=== PATIENT | male | born 1960 | race Caucasian/White ===

== ENCOUNTER 2019-05-01 07:33 | Inpatient (IN) | payer OTHER ==
[~2019-05-01] VITALS: Ht 175.3 cm; Wt 79.4 kg
[2019-05-01] MEDS ORDERED: IPRATROPIUM/ALBUTEROL SULFATE 3 ML AMPUL.NEB (DUONEB) INH ONE (08:00)
[2019-05-01 08:03] LABS: BASOPHILS # (AUTO) 0.1 K/uL (0.0-0.2); EOSINOPHILS # (AUTO) 0.1 K/uL (0.0-0.4); EOSINOPHILS % (AUTO) 1.5 % (0.0-4.0); HEMATOCRIT 43.7 % (36-54); HEMOGLOBIN 14.9 g/dL (14.0-18.0); LYMPHOCYTES # (AUTO) 1.2 K/uL (1.0-5.5); LYMPHOCYTES % (AUTO) 14.7 % (20.5-51.5); MEAN CORPUSCULAR HEMOGLOBIN 29 pg (27-31); MEAN CORPUSCULAR HGB CONC 34 % (32-36); MEAN CORPUSCULAR VOLUME 86 fL (79.0-98.0); MONOCYTES # (AUTO) 0.7 K/uL (0.0-1.0); MONOCYTES % (AUTO) 8.6 % (1.7-9.3); NEUTROPHILS % (AUTO) 74.2 % (40.0-70.0); PLATELET COUNT (AUTO) 223 K/uL (130-430); RED BLOOD CELL COUNT(AUTO) 5.09 MIL/uL (4.2-6.2); RED CELL DISTRIBUTION WIDTH 14.8 % (9.0-15.0)
[2019-05-01] MEDS ORDERED: FUROSEMIDE 40 MG/4 ML VIAL IVP ONE (08:30)
[2019-05-01 08:32] LABS: ALBUMIN 3.4 g/dL (3.4-4.8); CALCIUM 8.8 mg/dL (8.4-11.0); CREATININE 1.5 mg/dL (0.55-1.30); POTASSIUM 4.2 mmol/L (3.5-5.1); TOTAL BILIRUBIN 0.8 mg/dL (0.0-1.0)
[2019-05-01 10:26] VITALS: BP_SYST 160
[2019-05-01] MEDS ORDERED: BECL8.7H (10:51)
[2019-05-01 19:00] VITALS: BP_SYST 153
[2019-05-01 20:00] VITALS: BP_SYST 153
[2019-05-01] MEDS: FUROSEMIDE 20 MG/2 ML VIAL IVP SCH (20:45)
[2019-05-01] MEDS: CARVEDILOL 6.25 MG TABLET (COREG) PO SCH (20:46)
[2019-05-01] MEDS ORDERED: ASPIRIN 81 MG TAB.CHEW PO SCH (21:00)
[2019-05-01] MEDS ORDERED: FUROSEMIDE 20 MG/2 ML VIAL IVP SCH (21:00)
[2019-05-01] MEDS ORDERED: DILTIAZEM HCL 30 MG TABLET PO SCH (21:00)
[2019-05-01] MEDS ORDERED: CARVEDILOL 6.25 MG TABLET (COREG) PO SCH (21:00)
[2019-05-01 22:46] LABS: BARBITURATE, URINE NEGATIVE (NEG <=200); BENZODIAZEPINE, URINE NEGATIVE (NEG <=150); CANNABINOID, URINE NEGATIVE (NEG <=50); COCAINE, URINE NEGATIVE (NEG <=150); METHAMPHETAMINES SCREEN,URINE POSITIVE (NEG <=500); OPIATE, URINE NEGATIVE (NEG <=100); PHENCYCLIDINE SCREEN,URINE NEGATIVE (NEG <=25); UR TRICYCLIC ANTIDEPRESSANTS NEGATIVE (NEG <=300); URINE AMPHETAMINE NEGATIVE (NEG <=500); URINE METHADONE NEGATIVE (NEG <=200); URINE OXYCODONE SCREEN NEGATIVE (NEG <=100); URINE PROPOXYPHENE SCREEN NEGATIVE (NEG <=300)
[2019-05-02 00:50] VITALS: BP_SYST 152
[2019-05-02] MEDS ORDERED: ACETAMINOPHEN 325 MG TABLET PO PRN (01:00)
[2019-05-02] MEDS ORDERED: TEMAZEPAM 15 MG CAPSULE PO PRN (01:00)
[2019-05-02 06:13] LABS: CALCIUM 8.9 mg/dL (8.4-11.0); CREATININE 1.45 mg/dL (0.55-1.30); POTASSIUM 3.3 mmol/L (3.5-5.1)
[2019-05-02 08:00] VITALS: BP_SYST 123
[2019-05-02] MEDS ORDERED: ENOXAPARIN SODIUM 30 MG/0.3 ML SYRINGE SUBCUT SCH (09:00)
[2019-05-02] MEDS: FUROSEMIDE 20 MG/2 ML VIAL IVP SCH ×2 (09:16→20:32)
[2019-05-02] MEDS: CARVEDILOL 6.25 MG TABLET (COREG) PO SCH ×2 (09:17→20:31)
[2019-05-02] MEDS ORDERED: FUROSEMIDE 20 MG/2 ML VIAL ONE (09:32)
[2019-05-02 12:20] VITALS: BP_SYST 109
[2019-05-02] MEDS ORDERED: NICOTINE 21 MG/24 HR PATCH.TD24 TD ONE (16:15)
[2019-05-02] MEDS ORDERED: POTASSIUM CHLORIDE 10 MEQ TAB.PRT.SR PO ONE (16:30)
[2019-05-02 16:43] VITALS: BP_SYST 121
[2019-05-02 20:00] VITALS: BP_SYST 144
[2019-05-03 00:44] VITALS: BP_SYST 139
[2019-05-03 07:10] LABS: CALCIUM 9.4 mg/dL (8.4-11.0); CREATININE 1.53 mg/dL (0.55-1.30); POTASSIUM 3.4 mmol/L (3.5-5.1)
[2019-05-03] MEDS ORDERED: NICOTINE 21 MG/24 HR PATCH.TD24 TD SCH (09:00)
== END 2019-05-03 08:10 | disposition left against medical advice (07) | DRG 291 ==
LOC: SED 07:33 → STU 09:42 → SMU 10:00 → STU 10:05
PROVIDERS: ADMIT Family Medicine; ATTEND Family Medicine
DX: I13.0 Hypertensive heart and chronic kidney disease with heart failure and stage 1 through stage 4 chronic kidney disease, or unspecified chronic kidney disease (principal); I50.23 Acute on chronic systolic (congestive) heart failure; N17.9 Acute kidney failure, unspecified; F15.90 Other stimulant use, unspecified, uncomplicated; F17.210 Nicotine dependence, cigarettes, uncomplicated; I42.0 Dilated cardiomyopathy; J44.9 Chronic obstructive pulmonary disease, unspecified; N18.9 Chronic kidney disease, unspecified; Z79.899 Other long term (current) drug therapy
CPT/HCPCS: 36415; 71045; 80048; 80053; 80307; 83880; 84484; 85025; 93005; 93306; 94640; 96374; 99285; G0378; J1650; J1940; J7620

== ENCOUNTER 2019-05-04 08:35 | Emergency (ER) | payer OTHER ==
[~2019-05-04] VITALS: Ht 175.3 cm; Wt 80.7 kg
[~2019-05-04 08:35] MED LIST: BECL8.7H
[2019-05-04 08:45] VITALS: BP_SYST 137
[2019-05-04 09:12] LABS: BASOPHILS # (AUTO) 0.1 K/uL (0.0-0.2); EOSINOPHILS # (AUTO) 0.5 K/uL (0.0-0.4); EOSINOPHILS % (AUTO) 6.9 % (0.0-4.0); HEMATOCRIT 49.1 % (36-54); HEMOGLOBIN 16.5 g/dL (14.0-18.0); LYMPHOCYTES # (AUTO) 1.2 K/uL (1.0-5.5); LYMPHOCYTES % (AUTO) 17.2 % (20.5-51.5); MEAN CORPUSCULAR HEMOGLOBIN 29 pg (27-31); MEAN CORPUSCULAR HGB CONC 34 % (32-36); MEAN CORPUSCULAR VOLUME 86 fL (79.0-98.0); MONOCYTES # (AUTO) 0.9 K/uL (0.0-1.0); MONOCYTES % (AUTO) 12.2 % (1.7-9.3); NEUTROPHILS # (AUTO) 4.3 K/uL (1.8-7.7); NEUTROPHILS % (AUTO) 61.7 % (40.0-70.0); PLATELET COUNT (AUTO) 249 K/uL (130-430); RED BLOOD CELL COUNT(AUTO) 5.69 MIL/uL (4.2-6.2); RED CELL DISTRIBUTION WIDTH 14.5 % (9.0-15.0); WHITE BLOOD COUNT (AUTO) 6.9 K/uL (4.8-10.8)
--- NOTE | 2019-05-04 09:12 | NUR ---
Placed in room 4. Placed on cardiac catheterization technologist, blood pressure machine and pulse oximeter. To gown for exam. Side rails up. Report given to Miles OWENS.
[2019-05-04 09:24] LABS: CALCIUM 8.5 mg/dL (8.4-11.0); CREATININE 1.81 mg/dL (0.55-1.30); POTASSIUM 4.4 mmol/L (3.5-5.1)
--- NOTE | 2019-05-04 09:27 | NUR ---
Patient is awake, alert, and oriented x4. Patient reports chest pain and SOB since this morning. Patient left AMA yesterday and came back in at the request of his father.
[2019-05-04 09:29] LABS: PROTHROMBIN TIME 10.5 SECS (9.5-12.5)
[2019-05-04 09:33] LABS: ALBUMIN 3.3 g/dL (3.4-4.8); TOTAL BILIRUBIN 0.5 mg/dL (0.0-1.0)
--- NOTE | 2019-05-04 10:00 | NUR ---
Kassidy lakeandi in ED - 05/04/19 at 1000 by CRESENCIO Patient is calling her friend for a ride home.
--- NOTE | 2019-05-04 10:15 | NUR ---
ER Dr. Hairston at bedside examining patient.
[2019-05-04 10:43] VITALS: BP_SYST 137
--- NOTE | 2019-05-04 10:43 | NUR ---
Patient given written and verbal discharge instructions and verbalizes understanding. ER MD discussed with patient the results and treatment provided. Patient in stable condition. ID arm band removed. Rx of albuterol, atrovent given. Patient educated on pain management and to follow up with PMD. Pain Scale 0/10. Opportunity for questions provided and answered. Medication side effect fact sheet provided.
== END 2019-05-04 10:43 | disposition home or self-care (01) ==
LOC: SED 08:35
DX: J44.1 Chronic obstructive pulmonary disease with (acute) exacerbation (principal)
CPT/HCPCS: 36415; 71045; 80053; 83880; 84484; 85025; 85610-TC; 85730-TC; 99284

== ENCOUNTER 2019-05-23 12:39 | Inpatient (IN) | payer OTHER ==
[~2019-05-23] VITALS: Ht 175.3 cm; Wt 86.6 kg
[2019-05-23 12:49] VITALS: BP_SYST 165
--- NOTE | 2019-05-23 12:53 | NUR ---
Placed in room 07 . Placed on groundwater monitoring technician, blood pressure machine and pulse oximeter. To gown for exam. Side rails up. Report given to Kaley OWENS.
--- NOTE | 2019-05-23 12:55 | NUR ---
Pt AAOx4 presents to ED via wheelchair c/o shortness of breath x 3 weeks with acute exacerbation today. Denies taking medication prior to arrival. Skin pink dry and warm, breathing labored and tachypneic. Denies n/v/d. No other injuries/complaints per pt/noted.
--- NOTE | 2019-05-23 12:58 | NUR ---
LILIANA Smith at bedside examining patient.
--- NOTE | 2019-05-23 13:13 | NUR ---
LILIANA Da Silva at bedside examining patient.
[2019-05-23] MEDS ORDERED: IPRATROPIUM/ALBUTEROL SULFATE 3 ML AMPUL.NEB (DUONEB) INH ONE (13:15)
[2019-05-23] MEDS ORDERED: FUROSEMIDE 40 MG/4 ML VIAL IVP ONE (13:15)
--- NOTE | 2019-05-23 13:15 | NUR ---
# 20 gauge angiocath placed to RIGHT FOREARM. Use of aseptic technique. Opsite placed over site. Blood return noted. No evidence of infiltration noted. Patient tolerated well.
--- NOTE | 2019-05-23 13:19 | NUR ---
chest xary done at bedside.
[2019-05-23 13:51] LABS: BASOPHILS # (AUTO) 0.1 K/uL (0.0-0.2); BASOPHILS % (AUTO) 2.1 % (0.0-2.0); EOSINOPHILS # (AUTO) 0.3 K/uL (0.0-0.4); HEMATOCRIT 46.3 % (36-54); HEMOGLOBIN 15.3 g/dL (14.0-18.0); LYMPHOCYTES # (AUTO) 1.7 K/uL (1.0-5.5); MEAN CORPUSCULAR HEMOGLOBIN 29 pg (27-31); MEAN CORPUSCULAR HGB CONC 33 % (32-36); MEAN CORPUSCULAR VOLUME 88 fL (79.0-98.0); MONOCYTES # (AUTO) 0.7 K/uL (0.0-1.0); MONOCYTES % (AUTO) 10.9 % (1.7-9.3); NEUTROPHILS # (AUTO) 3.7 K/uL (1.8-7.7); PLATELET COUNT (AUTO) 226 K/uL (130-430); RED BLOOD CELL COUNT(AUTO) 5.25 MIL/uL (4.2-6.2); RED CELL DISTRIBUTION WIDTH 15.5 % (9.0-15.0); WHITE BLOOD COUNT (AUTO) 6.5 K/uL (4.8-10.8)
[2019-05-23 14:10] LABS: ANION GAP 11 (5-15); CALCIUM 8.5 mg/dL (8.4-11.0); CHLORIDE 103 mmol/L (98-107); CREATININE 1.89 mg/dL (0.55-1.30); GLUCOSE 104 mg/dL (70-99); SODIUM SERUM 140 mmol/L (136-145); UREA NITROGEN, BLOOD 26 mg/dL (8-21)
[2019-05-23 14:11] LABS: INR 1.1 (0.80-1.20); PROTHROMBIN TIME 11.5 SECS (9.5-12.5)
[2019-05-23 14:13] LABS: GFR AFRICAN AMERICAN 48 mL/min (>90)
[2019-05-23 14:15] LABS: ALANINE AMINOTRANSFERASE 104 U/L (12-78); ALBUMIN 3.2 g/dL (3.4-4.8); ASPARTATE AMINOTRANSFERASE 58 U/L (10-37); TOTAL BILIRUBIN 1.3 mg/dL (0.0-1.0)
[2019-05-23 14:16] LABS: ALCOHOL, BLOOD < 3 mg/dL (<10)
--- NOTE | 2019-05-23 14:28 | NUR ---
Pt unable to recall current list of medication. Pt states he fills medication at [facility]. , Pharmacy reports that no current med list available and only one medication was filled and completed in October 2017. Unable to complete med rec list at this time.
[2019-05-23] MEDS ORDERED: hydrALAZINE HCL 20 MG/ML VIAL IVP ONE (14:30)
[2019-05-23 14:35] LABS: BILIRUBIN,URINE NEGATIVE (NEGATIVE); BLOOD, URINE 2+ (NEGATIVE); CLARITY/URINE CLEAR (CLEAR); COLOR,URINE YELLOW (YELLOW); GLUCOSE,URINE NEGATIVE (NEGATIVE); KETONES,URINE NEGATIVE (NEGATIVE); LEUKOCYTE ESTERASE ,URINE NEGATIVE (NEGATIVE); NITRITE, URINE NEGATIVE (NEGATIVE); PROTEIN URINE 2+ (NEGATIVE); UROBILINOGEN,URINE 0.2 (0.2-1.0)
[2019-05-23 14:45] LABS: BACTERIA,URINE FEW /HPF (None Seen); MUCUS,URINE None Seen /LPF (None Seen); WBC,URINE 0-3 /HPF (0-3)
[2019-05-23 14:47] LABS: BARBITURATE, URINE NEGATIVE (NEG <=200); BENZODIAZEPINE, URINE NEGATIVE (NEG <=150); CANNABINOID, URINE NEGATIVE (NEG <=50); COCAINE, URINE NEGATIVE (NEG <=150); METHAMPHETAMINES SCREEN,URINE POSITIVE (NEG <=500); OPIATE, URINE NEGATIVE (NEG <=100); PHENCYCLIDINE SCREEN,URINE NEGATIVE (NEG <=25); UR TRICYCLIC ANTIDEPRESSANTS NEGATIVE (NEG <=300); URINE AMPHETAMINE POSITIVE (NEG <=500); URINE METHADONE NEGATIVE (NEG <=200); URINE OXYCODONE SCREEN NEGATIVE (NEG <=100); URINE PROPOXYPHENE SCREEN NEGATIVE (NEG <=300)
--- NOTE | 2019-05-23 14:57 | NUR ---
Patient will be admitted to care of Dr. Molina. Admitted to Telemetry unit. Summary report printed. Report will be given at bedside.
--- NOTE | 2019-05-23 15:30 | NUR ---
ADMISSION NOTE Received patient from ER via ranjit, received report from Gonzalo OWENS. Patient admitted with diagnosis of CHF Exacerbation. Patient oriented to hospital routine, call light, toileting and safety-patient verbalized understanding.
[2019-05-23 15:34] VITALS: BP_SYST 142
--- NOTE | 2019-05-23 15:36 | NUR ---
Consultation Paged Reason for consultation:CHF Exacerbation Was consult called: Yes Person who was notified: Ambar Consulting Physician: Dr. Solo Buy Boat Operator Specialty: Cardio. Buy Boat Operator Ordered By: Dr. Avelino Molina
--- NOTE | 2019-05-23 15:41 | NUR ---
Cardio calls: Dr. Solo has called and asked about patient's condition, states he will see the patient this afternoon.
[2019-05-23] MEDS ORDERED: FLU VACC QS2019-20 36MOS UP/PF 60 MCG/0.5 ML SYRINGE I.M. PRN (16:00)
--- NOTE | 2019-05-23 16:49 | NUR ---
ROUNDS Pt sitting up in bed with no c/o pain or discomfort. Pt with no s/s resp distress, noted shallow breathing at times. pt given [place] sandwich and ice water per request. Second urinal placed at bedside due to pt given Lasix in ER. Needs met, call light within reach.
--- NOTE | 2019-05-23 17:14 | NUR ---
CONSULTATION PAGED REASON FOR CONSULTATION:YFN WAS CONSULT CALLED?Y PERSON WHO WAS NOTIFIED:JESÚS CONSULTING PHYSICIAN:ARLIN MOODY IMPORT CLERK SPECIALTY:NEPHRO IMPORT CLERK PHONE NUMBER:[phone] REQUESTING PHYSICIAN:FRANCK VELIZ
[2019-05-23] MEDS ORDERED: HYDROcodone/ACETAMIN 5-325 MG TAB (NORCO/ VICODIN) PO PRN (17:15)
[2019-05-23] MEDS ORDERED: LORazepam 2 MG/ML VIAL IVP PRN (17:15)
[2019-05-23] MEDS ORDERED: ACETAMINOPHEN 325 MG TABLET PO PRN (17:15)
[2019-05-23] MEDS ORDERED: ONDANSETRON HCL 4 MG/2 ML VIAL IVP PRN (17:15)
[2019-05-23] MEDS: LISINOPRIL 5 MG TABLET PO SCH (17:45)
[2019-05-23] MEDS ORDERED: CARVEDILOL 6.25 MG TABLET (COREG) ONE (18:14)
[2019-05-23] MEDS: CARVEDILOL 6.25 MG TABLET (COREG) PO SCH ×2 (18:16→20:29)
--- NOTE | 2019-05-23 18:55 | NUR ---
CLOSING NOTE/MD Pt resting quietly in bed with no s/s resp distress, no c/o pain or discomfort. Pt c/o feeling cold-pt given warm blanket. Pt seen by Dr. Solo earlier, orders noted and carried out. Needs met, call light within reach.
[2019-05-23 20:00] VITALS: BP_SYST 124
--- NOTE | 2019-05-23 20:00 | NUR ---
INITIAL NOTES HANDOFF REPORT RECEIVED FROM OFFGOING NURSE AT THE BEDSIDE. PATIENT IS AAOX4, RESTING COMFORTABLY IN BED. NO SOB, NO ACUTE DISTRESS, NO COMPLAINTS OF PAIN. CURRENTLY ON 2L NC AND TOLERATING WELL. BED IS LOCKED, IN THE LOWEST POSITION, 2X SIDE RAILS UP. PATIENT REFUSES BED ALARM AT THIS TIME, STATES HE IS ABLE TO AMBULATE INDEPENDENTLY WITHOUT ASSISTANCE TO THE RESTROOM AND BACK TO BED WITH STEADY GAIT. CALL LIGHT IS WITHIN REACH. ENCOURAGED PATIENT TO CALL FOR ASSISTANCE. WILL CONTINUE WITH PLAN OF CARE.
[2019-05-23] MEDS: NORMAL SALINE 5 ML DISP.SYRIN IVF SCH (20:29)
--- NOTE | 2019-05-23 22:00 | NUR ---
PATIENT ASSISTED TO GET OUT OF BED. PATIENT WAS TANGLED IN NASAL CANNULA TUBING. AMBULATED TO THE RESTROOM WITHOUT ASSISTANCE WITH STEADY GAIT. NOW BACK IN BED, RESTING COMFORTABLY. CALL LIGHT WITHIN REACH. ENCOURAGED PATIENT TO CALL FOR ASSISTANCE.
--- NOTE | 2019-05-23 23:46 | NUR ---
PATIENT RESTING COMFORTABLY IN BED, EYES CLOSED. BREATHING EVEN AND UNLABORED WITH VISIBLE CHEST RISE AND FALL NOTED. NO SOB, NO ACUTE DISTRESS, NO SIGNS OF PAIN OR FACIAL GRIMACING NOTED. CURRENTLY ON 2LNC AND TOLERATING WELL.
--- NOTE | 2019-05-24 01:49 | NUR ---
PATIENT RESTING COMFORTABLY IN BED. AAOX4. NO SOB, NO ACUTE DISTRESS, NO COMPLAINTS OF PAIN AT THIS TIME. JELL-O PROVIDED PER PATIENT REQUEST. CALL LIGHT WITHIN REACH. ENCOURAGED PATIENT TO CALL FOR ASSISTANCE.
[2019-05-24 02:28] VITALS: BP_SYST 130
--- NOTE | 2019-05-24 04:00 | NUR ---
PATIENT RESTING COMFORTABLY IN BED. EYES CLOSED. BREATHING EVEN AND UNLABORED. VISIBLE CHEST RISE AND FALL NOTED. NO SOB, NO ACUTE DISTRESS, NO SIGNS OF PAIN OR FACIAL GRIMACING NOTED. BED IS LOCKED, IN THE LOWEST POSITION, 2X SIDE RAILS UP. CALL LIGHT WITHIN REACH.
[2019-05-24] MEDS: NORMAL SALINE 5 ML DISP.SYRIN IVF SCH ×3 (05:16→21:17)
--- NOTE | 2019-05-24 05:16 | NUR ---
PATIENT AAOX4, RESTING COMFORTABLY IN BED. NO SOB, NO ACUTE DISTRESS, NO COMPLAINTS OF PAIN. PATIENT REMOVED NASAL CANNULA, STATED THAT THE OXYGEN IRRITATES HIS NOSE. TOLERATING ROOM AIR WITH 97% SATURATION. PATIENT STATED THAT HE HAS A LOT OF PHLEGM IN THE MORNING AND WOULD LIKE SOME TEA. PROVIDED PATIENT WITH HOT TEA PER PATIENT REQUEST. CALL LIGHT WITHIN REACH. ENCOURAGED PATIENT TO CALL FOR ASSISTANCE.
--- NOTE | 2019-05-24 06:23 | NUR ---
CLOSING NOTES PATIENT PROVIDED WITH ANOTHER CUP OF TEA PER PATIENT REQUEST. AAOX4, RESTING COMFORTABLY IN BED. NO SOB, NO ACUTE DISTRESS, NO COMPLAINTS OF PAIN. IV SITE INTACT, DRESSING CLEAN AND DRY, SALINE LOCKED. BED IS LOCKED, IN THE LOWEST POSITION, 2X SIDE RAILS UP. CALL LIGHT IS WITHIN REACH. ENCOURAGED PATIENT TO CALL FOR ASSISTANCE. FALL AND SAFETY PRECAUTIONS MAINTAINED. ALL NEEDS HAVE BEEN MET DURING THIS SHIFT. WILL ENDORSE CARE TO ONCOMING DAYSHIFT NURSE.
[2019-05-24 06:44] LABS: BASOPHILS # (AUTO) 0.1 K/uL (0.0-0.2); EOSINOPHILS # (AUTO) 0.4 K/uL (0.0-0.4); EOSINOPHILS % (AUTO) 5.2 % (0.0-4.0); HEMATOCRIT 44.3 % (36-54); HEMOGLOBIN 14.9 g/dL (14.0-18.0); LYMPHOCYTES # (AUTO) 1.6 K/uL (1.0-5.5); LYMPHOCYTES % (AUTO) 22.4 % (20.5-51.5); MEAN CORPUSCULAR HEMOGLOBIN 29 pg (27-31); MEAN CORPUSCULAR HGB CONC 34 % (32-36); MEAN CORPUSCULAR VOLUME 87 fL (79.0-98.0); MONOCYTES # (AUTO) 0.7 K/uL (0.0-1.0); MONOCYTES % (AUTO) 9.7 % (1.7-9.3); NEUTROPHILS # (AUTO) 4.3 K/uL (1.8-7.7); NEUTROPHILS % (AUTO) 61.7 % (40.0-70.0); PLATELET COUNT (AUTO) 211 K/uL (130-430); RED BLOOD CELL COUNT(AUTO) 5.08 MIL/uL (4.2-6.2); RED CELL DISTRIBUTION WIDTH 15.5 % (9.0-15.0)
[2019-05-24 07:33] LABS: ALBUMIN 2.9 g/dL (3.4-4.8); CALCIUM 8.3 mg/dL (8.4-11.0); CREATININE 1.63 mg/dL (0.55-1.30); TOTAL BILIRUBIN 1.2 mg/dL (0.0-1.0)
[2019-05-24 07:50] VITALS: BP_SYST 149
--- NOTE | 2019-05-24 07:50 | NUR ---
INITIAL ROUNDS Received pt AAOx4, no s/s resp distress-pt c/o his nares being dry-humidifier placed. C/o low abd pain 05/28-will check on pain medication. Plan of care for the day reviewed with pt-pt verbalized his understanding. Pain management, CHF disease process, skin and safety discussed-teach back done. Call light within reach.
[2019-05-24] MEDS: LISINOPRIL 5 MG TABLET PO SCH (08:27)
[2019-05-24] MEDS: BECLOMETHASONE DIPROPIONATE SCH (08:28)
[2019-05-24] MEDS: FUROSEMIDE 40 MG/4 ML VIAL IVP SCH (08:28)
[2019-05-24] MEDS: CARVEDILOL 6.25 MG TABLET (COREG) PO SCH ×2 (08:28→21:17)
[2019-05-24] MEDS: HYDROcodone/ACETAMIN 10-325 MG TAB PO PRN ×2 (08:29→23:50)
--- NOTE | 2019-05-24 11:27 | NUR ---
CONSULTATION PAGED REASON FOR CONSULTATION: Transaminitis WAS CONSULT CALLED?Yes PERSON WHO WAS NOTIFIED: Melissa CONSULTING PHYSICIAN: Dr. Chatterjee (Dr. [place] director of land acquisition) SOW FARM TECHNICIAN SPECIALTY: GI SOW FARM TECHNICIAN PHONE NUMBER: [phone] REQUESTING PHYSICIAN: Avelino Corley
--- NOTE | 2019-05-24 11:28 | NUR ---
CONSULTATION PAGED REASON FOR CONSULTATION:TRANSAMINITIS WAS CONSULT CALLED?Y PERSON WHO WAS NOTIFIED:JESÚS CONSULTING PHYSICIAN:ROB MEDEL (ANNABEL CASTILLO ONLINE EDITOR) [facility] SPECIALTY:GI [facility] PHONE NUMBER:[phone] ORDERING PHYSICIAN:FRANCK VELIZ
[2019-05-24 11:37] VITALS: BP_SYST 102
--- NOTE | 2019-05-24 12:02 | NUR ---
Director Of Learning Note Patient referred to Director Of Learning by nursing due to substance abuse. Also conducted Discharge Plan Assessment. SENIOR STOCK PLAN ADMINISTRATOR met with patient at bedside. He stated he knew he needed to stop using meth and alcohol or he will . He has recently stopped smoking. SENIOR STOCK PLAN ADMINISTRATOR provided a list of substance abuse resources and discussed. Left note for Cat PAYNE to determine what substance abuse resources are available to patient through his insurance and obtain name of PCP. Unsure if patient will need or qualify for O2 upon discharge. SS/CM/DCP will remain available.
--- NOTE | 2019-05-24 12:12 | NUR ---
ROUNDS/MD Pt sitting up in bed eating his lunch, pt informed that the MD ordered an abd US and he will need to be NPO after lunch. No s/s resp distress, no c/o pain or discomfort. Pt seen by Dr. Molina earlier. Needs met, call light within reach.
--- NOTE | 2019-05-24 15:08 | NUR ---
ROUNDS Pt sitting up in bed visiting with his daughters, no s/s resp distress, no c/o pain or discomfort. Dr. Solo saw pt and is emphasizing to the pt how serious his condition is at this time. Call light within reach.
[2019-05-24 15:14] VITALS: BP_SYST 119
--- NOTE | 2019-05-24 18:36 | NUR ---
CLOSING NOTE Pt sitting up in bed visiting with his family. No s/s resp distress, no c/o pain. Pt does c/o itchiness to right forearm, pt given lotion. Dr. Molina called and orders placed for Benadryl tablets. Will give to pt. Pt reminded that he is to be NPO post midnight for Abd US in the morning-pt verbalized his understand. Needs met, call light within reach.
[2019-05-24] MEDS: DIPHENHYDRAMINE HCL 50 MG CAPSULE PO PRN (18:57)
--- NOTE | 2019-05-24 19:36 | NUR ---
Initial note: Received report from edilson RN. Patient is awake, laying in bed, no acute distress. Receiving 2L O2 via NC, even and unlabored respirations. IV to right forearm is saline locked. Patent and benign. Call light with patient. Safety and fall precautions in place. Will continue with plan of care.
[2019-05-24 20:55] VITALS: BP_SYST 145
--- NOTE | 2019-05-24 21:43 | NUR ---
Rounds: Patient is awake in bed watching TV. Does not show any acute distress. Tolerating 2L NC. IV site is patent and intact. Call light with patient. Will continue to monitor.
--- NOTE | 2019-05-24 23:50 | NUR ---
Pain: Patient is complaining of severe abdominal pain. [place] 10-325 indicated. Education provided regarding indications and side effects, patient verbalized understanding. Administered medication per MD order. Call light with patient. Safety and fall precautions in place. Will continue to monitor.
--- NOTE | 2019-05-25 | NUR ---
NPO: Patient is now NPO for abdominal US in the AM. Educated patient regarding NPO status, patient verbalized understanding. Bedside cleared of food and liquids. Call light is with patient. Will continue to monitor.
[2019-05-25 01:26] VITALS: BP_SYST 138
--- NOTE | 2019-05-25 02:46 | NUR ---
NPO: Patient is now NPO for abdominal US in the AM. Educated patient regarding NPO status, patient verbalized understanding. Bedside cleared of food and liquids. Call light is with patient. Will continue to monitor. Addendum: 05/25/19 at 0249 by Nino Moreno RN Correction: wrong time
--- NOTE | 2019-05-25 02:49 | NUR ---
Rounds: Patient is sleeping, no acute distress. Even, unlabored breathing on 2L NC. IV site intact. Call light with patient. Safety and fall precautions in place. Will continue monitoring.
--- NOTE | 2019-05-25 04:32 | NUR ---
Rounds: Patient is sleeping, no acute distress noted. Tolerating 2LNC. Even and unlabored respirations. IV site is patent and intact. Call light with patient. Safety, fall precautions in place. Will continue monitoring.
[2019-05-25] MEDS: NORMAL SALINE 5 ML DISP.SYRIN IVF SCH ×3 (05:50→21:16)
--- NOTE | 2019-05-25 06:04 | NUR ---
Closing note: Patient is awake in bed, no acute distress noted. IV site to right forearm patent and benign. Tolerating 2L NC. Patient was complaining of feeling anxious regarding the ultrasound and was administered Ativan 1 MG intravenously as indicated per MD order. Indications and side effects discussed, patient verbalized understanding. All needs met. Safety and fall precautions maintained. Hourly rounding performed throughout shift. Will endorse care to dayshift RN.
[2019-05-25 07:31] LABS: BASOPHILS # (AUTO) 0.1 K/uL (0.0-0.2); BASOPHILS % (AUTO) 1.1 % (0.0-2.0); EOSINOPHILS # (AUTO) 0.4 K/uL (0.0-0.4); EOSINOPHILS % (AUTO) 6.9 % (0.0-4.0); HEMATOCRIT 46.2 % (36-54); HEMOGLOBIN 15.4 g/dL (14.0-18.0); LYMPHOCYTES # (AUTO) 1.4 K/uL (1.0-5.5); LYMPHOCYTES % (AUTO) 24.8 % (20.5-51.5); MEAN CORPUSCULAR HEMOGLOBIN 29 pg (27-31); MEAN CORPUSCULAR HGB CONC 33 % (32-36); MEAN CORPUSCULAR VOLUME 88 fL (79.0-98.0); MONOCYTES # (AUTO) 0.6 K/uL (0.0-1.0); NEUTROPHILS # (AUTO) 3.2 K/uL (1.8-7.7); NEUTROPHILS % (AUTO) 56.2 % (40.0-70.0); PLATELET COUNT (AUTO) 230 K/uL (130-430); RED BLOOD CELL COUNT(AUTO) 5.25 MIL/uL (4.2-6.2); RED CELL DISTRIBUTION WIDTH 15.5 % (9.0-15.0); WHITE BLOOD COUNT (AUTO) 5.8 K/uL (4.8-10.8)
--- NOTE | 2019-05-25 07:55 | NUR ---
Opening note a/ox4, denies pain, assessment complete, educated on plan of care and use of call light system, he verbalized understanding, patient provided with breakfast, post abdominal ultrasound at this time, continuing to monitor, bed in lowest position, two side rails up, call light within reach, fall and aspiration precautions in place.
[2019-05-25 08:07] VITALS: BP_SYST 134
[2019-05-25 08:07] LABS: ALANINE AMINOTRANSFERASE 94 U/L (12-78); ALBUMIN 2.8 g/dL (3.4-4.8); ASPARTATE AMINOTRANSFERASE 39 U/L (10-37); C-REACTIVE PROTEIN QUANT 0.9 mg/dL (0-0.5); CHLORIDE 103 mmol/L (98-107); CREATININE 1.87 mg/dL (0.55-1.30); GLUCOSE 94 mg/dL (70-99); PHOSPHORUS 3.9 mg/dL (2.7-4.5); POTASSIUM 3.6 mmol/L (3.5-5.1); SODIUM SERUM 137 mmol/L (136-145); TOTAL BILIRUBIN 0.9 mg/dL (0.0-1.0); UREA NITROGEN, BLOOD 31 mg/dL (8-21)
[2019-05-25 08:08] LABS: ANION GAP < 3 (5-15); GFR AFRICAN AMERICAN 48 mL/min (>90)
[2019-05-25] MEDS: FUROSEMIDE 40 MG/4 ML VIAL IVP SCH (08:24)
[2019-05-25] MEDS: CARVEDILOL 6.25 MG TABLET (COREG) PO SCH ×2 (08:24→21:15)
[2019-05-25] MEDS: LISINOPRIL 5 MG TABLET PO SCH (08:24)
--- NOTE | 2019-05-25 08:24 | NUR ---
Medications patient resting in bed, awake, denies pain, educated on all medications uses and potential side effects, he verbalized understanding and tolerated well, IV line is patent and infusing well, continuing to monitor, bed in lowest position, two side rails up, call light within reach, fall and aspiration precautions in place.
[2019-05-25] MEDS: BECLOMETHASONE DIPROPIONATE SCH (08:30)
[2019-05-25 08:34] LABS: CALCIUM 8.1 mg/dL (8.4-11.0)
[2019-05-25 08:42] LABS: ERYTHROCYTE SEDIMENTATION RATE 5 MM/HR (0-15)
--- NOTE | 2019-05-25 11:08 | NUR ---
Occupational Safety Specialist Note Received a call from patient's step mother, Jovi Castro. She stated that patient is wanting rehab, possibly inpatient, but patient's insurance does not cover it. After making several calls, BRANCH LEAD offered two general referrals: call 211 or look up [email or web address] . Also, [facility] [phone], [facility] [phone], and [facility] [phone]. Will remain available.
[2019-05-25 11:31] VITALS: BP_SYST 125
--- NOTE | 2019-05-25 11:36 | NUR ---
RN rounds patient resting in bed, awake, denies pain, denies shortness of breath, he states, "I want to sleep," continuing to monitor, bed in lowest position, two side rails up, call light within reach, fall and aspiration precautions in place.
--- NOTE | 2019-05-25 12:45 | NUR ---
Nutrition Assessment (short note d/t lack of time) Admitting Dx: CHF exacerbation, COPD, HTN, YFN, CKD, Hyperglycemia, Hyperbilirubinemia, Transaminitis, Hypoalbuminemia, Lactic Acidosis, Tobacco use, Meth abuse, Alcohol Abuse, Cardiomegaly, Hematuria, Possible UTI per MD notes. A- RD reviewed pt's current EMR including diet Hx, physician notes, nursing notes, pertinent labs/meds/procedures, care trends and care activity. Pt seen sitting up in bed w/ friend at bedside. Pt reported of excellent appetite, verified anthropometrics and reported frequent visit to restaurants/fast food chains for meals. Pt is not able to make home cooked meals d/t current living condition. Food allergy, N/V, chewing or swallowing difficulty were denied. Pt is meeting adequate nutrition and is interested in receiving nutrition education. RD to provide. Ht:5'9 Wt: 194#/88 kg %IBW:121 IBW:160#/73 kg ESTIMATED NUTRITIONAL REQUIREMENTS CALORIES/DAY: 0556-0517 kcal/day (30-35 kcal/kg CBW for COPD) PROTEIN/DAY: 53-70 mg/day (0.6-0.8 gm/kg CBW for Renal Dz predialysis) FLUID/DAY: per MD (Renal Dz) D: Poor nutrition quality of life r/t current living condition AEB pt's report of frequent meals in restaurants and inability to prepare and cook meals for self in apartment. I: Recommend continuing Cardiac diet per MD orders. RD to provide nutrition education. M: Monitor appetite and PO intake w/ goal of pt meeting at least 75% of estimated nutritional needs, labs trending WNL, normal GI function, skin integrity/wt maintenance. E: RD to F/U within 2-3 days [facility] Addendum: 05/25/19 at [address] F/U MR 3-5 days (05/19-05/30) GLORIA RD
--- NOTE | 2019-05-25 12:52 | NUR ---
Curriculum Development Coordinator Recommendation Recommend continuing Cardiac diet per MD orders. RD to provide nutrition education. Please see Nutritional Assessment for details. GLORIA, RD
--- NOTE | 2019-05-25 13:15 | NUR ---
RN rounds patient resting in bed, eating lunch, aspiration precautions in place, no other needs at this time, continuing to monitor, bed in lowest position, two side rails up, call light within reach, fall and aspiration precautions in place.
--- NOTE | 2019-05-25 14:56 | NUR ---
RN rounds/Ambulated with patient patient asking to walk around, he agreed to wear non-slip socks, provided patient with socks and ambulated him with assistance in the hallways for about 5 minutes, he tolerated well, patient denies shortness of breath, and denies pain, patient returned to bed, no other needs at this time, bed in lowest position, two side rails up, call light within reach, fall and aspiration precautions in place.
[2019-05-25 15:35] VITALS: BP_SYST 119
--- NOTE | 2019-05-25 16:15 | NUR ---
RN rounds patient resting in bed, awake, denies pain, denies shortness of breath, continuing to monitor, bed in lowest position, two side rails up, call light within reach, fall and aspiration precautions in place.
--- NOTE | 2019-05-25 16:29 | NUR ---
Family at bedside had questions about plan of care answered their and patient's questions.
--- NOTE | 2019-05-25 16:42 | NUR ---
Dr. Sherwood rounds assessed patient and spoke with patient and family, will follow up with any new orders.
--- NOTE | 2019-05-25 18:37 | NUR ---
Closing note patient resting in bed, awake, stable condition, all needs met, will endorse report to NOC shift nurse, bed in lowest position, two side rails up, call light within reach, fall and aspiration precautions in place.
--- NOTE | 2019-05-25 19:30 | NUR ---
OPENING NOTES Pt and endorsement received from day shift nurse. Pt is AAOx4, lying in bed. Pt on O2 inhalation at 2L via nasal cannula. Pt on saline lock on right forearm G20. No complains of pain or discomfort. No signs of acute distress or SOB noted. Encouraged to use call light when needed. Safety precautions in place with 2 side rails up, wheels locked, and bed in lowest level. Call light with pt. Will continue to monitor.
[2019-05-25 21:13] VITALS: BP_SYST 137
--- NOTE | 2019-05-25 21:20 | NUR ---
MED PASS All due meds given and pt tolerated well. No complains of pain and no signs of acute distress noted. Jello and hot tea given per pt's request. Safety precautions in place and call light with pt. Will continue to monitor.
--- NOTE | 2019-05-26 00:10 | NUR ---
ROUNDS Pt is resting in bed with both eyes closed, with visible chest rise and fall with non-labored breathing noted. No signs of acute distress noted. No needs at this time. Safety precautions in place and call light with pt. Will continue to monitor.
[2019-05-26 01:25] VITALS: BP_SYST 119
--- NOTE | 2019-05-26 03:05 | NUR ---
ROUNDS Pt is resting in bed with both eyes closed, with visible chest rise and fall with non-labored breathing noted. Pt is easily arousable. No complains of pain and signs of acute distress noted. Safety precautions in place and call light with pt. Will continue to monitor.
[2019-05-26] MEDS: NORMAL SALINE 5 ML DISP.SYRIN IVF SCH ×3 (06:29→21:21)
--- NOTE | 2019-05-26 06:35 | NUR ---
CLOSING NOTES Pt is AAOx4, lying in bed while watching tv. Pt on O2 inhalation at 2L via nasal cannula. No complains of pain at this time. No signs of acute distress or SOB noted. All needs attended throughout the shift. Safety precautions maintained with 2 side rails up, wheels locked, and bed in lowest level. Call light with pt. Will endorse to day shift nurse.
[2019-05-26 07:09] LABS: BASOPHILS # (AUTO) 0.1 K/uL (0.0-0.2); BASOPHILS % (AUTO) 1.4 % (0.0-2.0); EOSINOPHILS # (AUTO) 0.4 K/uL (0.0-0.4); EOSINOPHILS % (AUTO) 7.4 % (0.0-4.0); HEMATOCRIT 44.9 % (36-54); HEMOGLOBIN 15.1 g/dL (14.0-18.0); LYMPHOCYTES # (AUTO) 1.6 K/uL (1.0-5.5); MEAN CORPUSCULAR HEMOGLOBIN 30 pg (27-31); MEAN CORPUSCULAR HGB CONC 34 % (32-36); MEAN CORPUSCULAR VOLUME 88 fL (79.0-98.0); MONOCYTES # (AUTO) 0.6 K/uL (0.0-1.0); MONOCYTES % (AUTO) 11.3 % (1.7-9.3); NEUTROPHILS % (AUTO) 51.9 % (40.0-70.0); PLATELET COUNT (AUTO) 233 K/uL (130-430); RED BLOOD CELL COUNT(AUTO) 5.13 MIL/uL (4.2-6.2); RED CELL DISTRIBUTION WIDTH 14.9 % (9.0-15.0); WHITE BLOOD COUNT (AUTO) 5.7 K/uL (4.8-10.8)
--- NOTE | 2019-05-26 07:37 | NUR ---
Initial notes: Patient on bed resting. Stable. Awake, alert and oriented. Discussed plan of care. Jc light within reach. Report received at bedside.
[2019-05-26 07:56] LABS: CALCIUM 8.5 mg/dL (8.4-11.0); CREATININE 1.64 mg/dL (0.55-1.30); PHOSPHORUS 3.9 mg/dL (2.7-4.5); POTASSIUM 4.1 mmol/L (3.5-5.1)
[2019-05-26 08:00] VITALS: BP_SYST 145
[2019-05-26 08:06] LABS: HEPATITIS A AB, IgM Negative (Negative); HEPATITIS B CORE AB, IgM Negative (Negative); HEPATITIS B SURFACE AG Negative (Negative)
[2019-05-26] MEDS: FUROSEMIDE 40 MG/4 ML VIAL IVP SCH (08:21)
[2019-05-26] MEDS: HYDROcodone/ACETAMIN 10-325 MG TAB PO PRN ×3 (08:22→18:05)
[2019-05-26] MEDS: CARVEDILOL 6.25 MG TABLET (COREG) PO SCH ×2 (08:22→21:20)
[2019-05-26] MEDS: BECLOMETHASONE DIPROPIONATE SCH (08:23)
[2019-05-26] MEDS: LISINOPRIL 5 MG TABLET PO SCH (08:23)
--- NOTE | 2019-05-26 08:29 | NUR ---
ROUNDS: Patient complained of shoulder pain 02/25. Due pain meds given oral.
--- NOTE | 2019-05-26 10:25 | NUR ---
rounds: Patient ambulates at the hallway with steady gait. no distress noted.
[2019-05-26 11:25] VITALS: BP_SYST 132
[2019-05-26 12:06] LABS: FERRITIN 94 ng/mL (30-400)
--- NOTE | 2019-05-26 14:00 | NUR ---
rounds: Patient had a shower. Ambulates at the hallway. No distress noted.
[2019-05-26 15:06] LABS: AFP, TUMOR MARKER <0.7 ng/mL (0.0-8.3)
[2019-05-26 15:28] VITALS: BP_SYST 131
[2019-05-26] MEDS: DIPHENHYDRAMINE HCL 50 MG CAPSULE PO PRN ×2 (16:18→23:39)
--- NOTE | 2019-05-26 16:30 | NUR ---
rounds: patient talking to family, family at bedside.
--- NOTE | 2019-05-26 18:54 | NUR ---
Closing notes: Patient on bed resting. Stable. Needs attended. Call light within reach. Safety measures in placed. Report will be given to retail shift manager.
[2019-05-26 20:06] LABS: ANTI NUCLEAR AB WITH REFLEX Negative (Negative)
[2019-05-26 21:16] VITALS: BP_SYST 137
--- NOTE | 2019-05-26 21:21 | NUR ---
MED PASS All due meds given and pt tolerated well. No complains of pain and no signs of acute distress noted. No complains of pain and no signs of acute distress noted. Safety precautions in place and call light with pt. Will continue to monitor.
--- NOTE | 2019-05-26 23:39 | NUR ---
BENADRYL GIVEN Pt complained of itching all over his body, Benadryl 50mg 1 tab PO given as ordered. No signs of acute distress noted. Will continue to monitor.
[2019-05-27] VITALS (7 sets, daily range): BP systolic 109–147
--- NOTE | 2019-05-27 02:00 | NUR ---
ROUNDS Pt is resting in bed with both eyes closed, with visible chest rise and fall with non-labored breathing noted. Pt is stable and with signs of acute distress noted. Safety precautions in place and call light with pt. Will continue to monitor.
--- NOTE | 2019-05-27 04:25 | NUR ---
ROUNDS Pt is resting in bed with both eyes closed, with visible chest rise and fall with non-labored breathing noted. Pt is easily arousable. No signs of acute distress noted. No needs at this time. Safety precautions in place and call light with pt. Will continue to monitor.
[2019-05-27] MEDS: NORMAL SALINE 5 ML DISP.SYRIN IVF SCH ×2 (05:15→16:40)
--- NOTE | 2019-05-27 06:38 | NUR ---
CLOSING NOTES Pt is AAOx4, lying in bed. Pt on O2 inhalation at 2L via nasal cannula. No complains of pain at this time. No signs of acute distress or SOB noted. All needs attended throughout the shift. Safety precautions maintained with 2 side rails up, wheels locked, and bed in lowest level. Call light with pt. Will endorse to day shift nurse.
[2019-05-27 07:15] LABS: BASOPHILS # (AUTO) 0.1 K/uL (0.0-0.2); BASOPHILS % (AUTO) 2.1 % (0.0-2.0); EOSINOPHILS # (AUTO) 0.5 K/uL (0.0-0.4); EOSINOPHILS % (AUTO) 9.1 % (0.0-4.0); HEMATOCRIT 48.2 % (36-54); HEMOGLOBIN 16.1 g/dL (14.0-18.0); LYMPHOCYTES # (AUTO) 1.7 K/uL (1.0-5.5); LYMPHOCYTES % (AUTO) 30.9 % (20.5-51.5); MEAN CORPUSCULAR HEMOGLOBIN 29 pg (27-31); MEAN CORPUSCULAR HGB CONC 33 % (32-36); MEAN CORPUSCULAR VOLUME 88 fL (79.0-98.0); MONOCYTES # (AUTO) 0.6 K/uL (0.0-1.0); MONOCYTES % (AUTO) 11.2 % (1.7-9.3); NEUTROPHILS # (AUTO) 2.5 K/uL (1.8-7.7); NEUTROPHILS % (AUTO) 46.7 % (40.0-70.0); PLATELET COUNT (AUTO) 254 K/uL (130-430); RED BLOOD CELL COUNT(AUTO) 5.48 MIL/uL (4.2-6.2); RED CELL DISTRIBUTION WIDTH 15.6 % (9.0-15.0); WHITE BLOOD COUNT (AUTO) 5.4 K/uL (4.8-10.8)
[2019-05-27 07:40] LABS: CALCIUM 8.6 mg/dL (8.4-11.0); CREATININE 1.69 mg/dL (0.55-1.30); PHOSPHORUS 3.8 mg/dL (2.7-4.5); POTASSIUM 4.6 mmol/L (3.5-5.1)
[2019-05-27] MEDS: BECLOMETHASONE DIPROPIONATE SCH (09:00)
[2019-05-27] MEDS: FUROSEMIDE 40 MG/4 ML VIAL IVP SCH (09:45)
[2019-05-27] MEDS: CARVEDILOL 6.25 MG TABLET (COREG) PO SCH ×2 (09:46→19:48)
[2019-05-27] MEDS: LISINOPRIL 5 MG TABLET PO SCH (09:46)
[2019-05-27] MEDS: DIPHENHYDRAMINE HCL 50 MG CAPSULE PO PRN ×2 (13:35→19:30)
[2019-05-27 14:06] LABS: ANTI-SMOOTH MUSCLE AB 13 Units (0-19)
--- NOTE | 2019-05-27 18:27 | NUR ---
PAGED I PAGED DR. MAYO A 1826 I SPOKE WITH KEIKO MAYO CALLED BACK @ 183
--- NOTE | 2019-05-27 19:18 | NUR ---
PAGED I PAGED DR. GAEL Jaquez @ [id number] I SPOKE WITH LAURA CEDENO
--- NOTE | 2019-05-27 19:34 | NUR ---
PAGED I PAGED DR. GAEL Jaquez. @ 1933 I SPOKE WITH JANNIE Jaquez CALLED BACK @ 1938
--- NOTE | 2019-05-27 19:44 | NUR ---
PAGED I PAGED DR. GAEL You @ 1943 I SPOKE WITH KIERRA CEDENO
--- NOTE | 2019-05-27 19:54 | NUR ---
PAGED I PAGED DR. GAEL You @ 1953 I SPOKE WITH BEAU CEDENO @ 2004 [facility] CHARGE NURSE PAGED AND SHE SPOKE WITH DR. GAEL You
[2019-05-27] MEDS ORDERED: FURO-149 PO (20:24)
[2019-05-27] MEDS ORDERED: CARV6.2554 PO (20:27)
[2019-05-27] MEDS ORDERED: LISI-694 PO (20:29)
[2019-05-27] MEDS ORDERED: FLU VACC TS2019(65UP)/MF59C/PF 45 MCG/0.5 ML SYRINGE I.M. PRN (20:30)
--- NOTE | 2019-05-27 21:45 | NUR ---
pt.d/c home in the care of parents.pt.was ordered d/c home per .nsg resolved the prescription order; had written/prescribed:lisinopril,coreg,lasix;earlier it was not confirmed if had provided the prescription to the pt's pharmacy.the issue was resolved.pt.had presented elevated b/p values.i administered coreg:po@1930p.the b/p wa re-assessed p/t d/c .the b/p aditi were w/in normal limits.no c/o pain nausea.i reviewed w/pt,family certain aspects of chf guidelines.i have printed the precribed medication monographs.pt.belongings accounted for;phone w/ sap abap programmer.yousuf;rn chg/alysa;rn/chg assisted in resolving the pharmacy issue and completing the d/c inquires.pt.order to f/u w/ w/in 2\3-weeks.i have printed the 's order for the appointment;reviewed the appointment order w/pt.all d/c paperwork presented to the pt.and reviewed.pt.has signed the d/c instruction sheet;i have witnessed the signing
--- NOTE | 2019-05-28 13:52 | NUR ---
PCP APPOINTMENT/CHF PROTOCOL PATIENT WENT TO [facility] FOR DRUG REHAB. KEN FROM 'S OFFICE SAID THAT PATIENT'S STEP MOM ALREADY CALLED TO INFORM THAT PT IS CONFINED FOR DRUG REHAB AND CANNOT GO OUT.
== END 2019-05-27 21:27 | disposition home or self-care (01) | DRG 682 ==
LOC: SED 12:39 → STU 15:05
PROVIDERS: ADMIT Preventive Medicine Preventive Medicine/Occupational Environmental Medicine; ATTEND Preventive Medicine Preventive Medicine/Occupational Environmental Medicine
DX: N17.0 Acute kidney failure with tubular necrosis (principal); I50.23 Acute on chronic systolic (congestive) heart failure; I13.2 Hypertensive heart and chronic kidney disease with heart failure and with stage 5 chronic kidney disease, or end stage renal disease; E87.2 Acidosis; I42.0 Dilated cardiomyopathy; N18.5 Chronic kidney disease, stage 5; E88.09 Other disorders of plasma-protein metabolism, not elsewhere classified; F10.10 Alcohol abuse, uncomplicated; F15.10 Other stimulant abuse, uncomplicated; F17.210 Nicotine dependence, cigarettes, uncomplicated; J44.9 Chronic obstructive pulmonary disease, unspecified; N28.1 Cyst of kidney, acquired; R16.0 Hepatomegaly, not elsewhere classified; E80.6 Other disorders of bilirubin metabolism; R73.9 Hyperglycemia, unspecified; R74.0 Nonspecific elevation of levels of transaminase and lactic acid dehydrogenase [LDH]; R31.9 Hematuria, unspecified; Z79.899 Other long term (current) drug therapy; Z82.49 Family history of ischemic heart disease and other diseases of the circulatory system
CPT/HCPCS: 36415; 71045; 71046-TC; 76700-TC; 76770; 80048; 80053; 80074; 80307; 81000-TC; 82105; 82728; 83516; 83605; 83735-TC; 83880; 84100-TC; 84484; 85025; 85610-TC; 85651-TC; 85730-TC; 86038; 86140; 87040-TC; 87081; 87086; 93005; 94640; 99285; G0378; G0482; J0360; J1940; J2060; J7620; Q0163; Q2037